=== PATIENT | male | born 1965 | race Caucasian/White ===

== ENCOUNTER 2025-01-23 07:40 | Emergency (ER) | payer OTHER, SELFPAY ==
--- OUTSIDE RECORDS SUMMARY | 2020-07-14 11:00 | XMS_ITS | Continuity of Care Document ---
Author Organization [facility] Address [address] [place] [address] Phone Care Team Providers Care Restrooms Or Lounges Maid Name Role Phone Jaya Gallo Unavailable Unavailable Procedures Procedure Date Moderna COVID-19 Vaccine Moderna COVID Vaccine Admin Dose 2 Moderna COVID-19 Vaccine Moderna COVID Vaccine Admin Dose 1 Moderna COVID-19 Vaccine Advance Directives Directive Yes / No Effective Date File Name No Information Encounters Encounter Description Practice Location Reason(s) For Visit Diagnoses Date Provider Providers Copied on Encounter [facility], [address] [place], [place], [id number], tel:[phone] COVID ECHD No Information Nancy Villatoro. [address], [place], [id number], [place]. tel:[phone] [facility], [address] [place], [place], [id number], tel:[phone] COVID ECHD No Information Nancy Villatoro. [address], [place], [id number], [place]. tel:[phone] Family History Family Member Type Diagnosis Age At Onset No Information Immunizations Vaccine Date Status Comments Moderna COVID administered Source: New Im munization Record Moderna COVID administered Source: New Im munization Record Payers Payer name Insurance type Covered green party ID Authoriza tion(s) Medicare PPS MB [id number] Medicare PPS MB [id number] Medicare PPS MB [id number] Social History Type Description Quantity Date Captured Comments Alcohol Use Details Unknown Caffeine Use Details Unknown Tobacco Use Status No Information Smoking Status No Information Sex Male Sexual Orientation Straight or heterosexual Gender Identity Male Chief Complaint And Reason For Visit No Information Reason For Referral Reason For Referral No Information History Of Present Illness Encounter Date Complaint History Of Prese nt Illness No Information Functional Status Date Functional Assessmen t No Information Instructions Date Instruction Additional Infor mation No Information Assessments Type Assessment Date No Information Patient Care Teams Name Effective Dates (start - stop) Status Members No Information
--- OUTSIDE RECORDS SUMMARY | 2025-01-20 08:39 | XMS_ITS | Encounter Summary ---
Author Organization [facility] Address [address] [place] [address] Care Team Providers Care News Broadcaster Name Role Phone Dain Marion DO Primary Care Provider [phone] Source Comments In the event this information is protected by the Federal Confidentiality of Alcohol and Drug AbusePatient Records regulations: The Federal rules restrict any use of the information to criminally investigate or prosecute any alcohol or drug abuse patient.[facility] Reason for Visit * Reason Comments Foreign Body Pt with small piece of metal in left foot x 3 weeks Encounter Details Date Type Department Care Team (Late st Contact Info) Description 01/20/2025 8:39 AM EDT - 01/20/2025 10:12 AM EDT Emergency [facility] Emergency Dept [address] [place] [address] Foreign body Discharge Disposition: AMA/Discontinuation of Care-Use additional discharge code Social History Tobacco Use Types Packs/Day Years Used Date Smoking Tobacco: Former Cigarettes 1 35 0 06/18/1977 - 06/18/2012 Smokeless Tobacco: Never Alcohol Use Standard Drinks/Week Comments Yes 0 (1 standard drink = 0.6 oz pur e alcohol) 2-3 beers daily as of 05/06/21 Social Connection and Isolat ion Panel [NHANES] Answer Date Recorded In a typical week, how many times do you talk on the phone with family, friends, or neighbors? More than three times a week 01/10/2021 How often do you get togethe r with friends or relatives? More than three times a week 01/10/2021 How often do you attend chur ch or synagogue services? More than 4 times per year 01/10/2021 Active Member of Clubs or Organizations Not on f ile 01/10/2021 How often do you attend meet ings of the clubs or organizations you belong to? More than 4 times per year 01/10/2021 Are you , , di vorced, , never , or living with a partner? 01/10/2021 AUDIT-C Answer Date Recorded Q1: How often do you have a drink containing alcohol? 4 or more times a week 01/10/2021 Q2: How many drinks containi ng alcohol do you have on a typical day when you are drinking? 7 to 9 Q3: How often do you have si x or more drinks on one occasion? Daily or almost daily 01/10/2021 Overall Financial Resource Strain (CARDIA) Answe r Date Recorded How hard is it for you to pa y for the very basics like food, housing, medical care, and heating? Not hard at all 01/10/2021 PHQ-2 Answer Date Recorded PHQ-2 score 0 01/10/2021 [facility] Answer Date Recorded Do you feel stress - tense, restless, nervous, or anxious, or unable to sleep at night because your mind is troubled all the time - these days? Only a little 01/10/2021 Exercise Vital Sign Answer Date Recorde d On average, how many days pe r week do you engage in moderate to strenuous exercise (like a brisk walk)? Patient declined On average, how many minutes do you engage in exercise at this level? Patient declined 01/10/2021 Hunger Vital Sign Answer Date Recorded Within the past 12 months, y ou worried that your food would run out before you got the money to buy more. Never true 01/11/20 21 Within the past 12 months, t he food you bought just didn't last and you didn't have money to get more. Never true 01/10/2021 PRAPARE - Transportation Answer Date Re corded In the past 12 months, has l ack of transportation kept you from medical appointments or from getting medications? No 12/17 In the past 12 months, has l ack of transportation kept you from meetings, work, or from getting things needed for daily living? No 01/10/2021 Housing Stability Vital Sign Answer Ranjan e Recorded In the last 12 months, was t here a time when you were not able to pay the mortgage or rent on time? No 01/10/2021 In the last 12 months, how many places have you lived? 1 01/10/2021 In the last 12 months, was t here a time when you did not have a steady place to sleep or slept in a custodial (including now)? No 01/10/2021 Area Deprivation Index Answer Date Ang rded National Score (1-100), lowe r number is lower risk 61 07/13/2024 State Score (1-10), lower number is lower risk 4 07/13/2024 Data from: https://www.neighborhoodatlas.medicine.[facility].edu/ . Last address used for calculation [address] 07/13/2024 Education Answer Date Recorded What is the highest level of school you have completed or the highest degree you have received? Some college, no degree 01/10/2021 Sex and Gender Information Value Date Recorded Sex Assigned at Male 10/06/2020 9:52 PM EDT Legal Sex Male 2:52 PM EDT Gender Identity Male 10/06/2020 9:52 PM EDT Sexual Orientation Straight 10/06/2020 9: 52 PM EDT Occupation Industry Job Start Date Job End Date Work at [employer] Not on file Not on file Not on starr e documented as of this encounter Last Filed Vital Signs Vital Sign Reading Time Taken Comments Blood Pressure 161/67 01/20/2025 8:27 AM EDT Pulse 71 01/20/2025 8:27 AM EDT Temperature - - Respiratory Rate 17 01/20/2025 8:27 AM EDT Oxygen Saturation 98% 01/20/2025 8:27 AM EDT Inhaled Oxygen Concentration - - Weight 78.5 kg (173 lb) 01/20/2025 8:00 AM EDT Height 165.1 cm (5' 5 ) 01/20/2025 8:00 AM EDT Body Mass Index 28.79 01/20/2025 8:00 AM EDT documented in this encounter Functional Status * Are you deaf or do you have serious difficulty hearing? Answer Date of Assessment Author No 01/08/2021 5:15 PM EDT Tiesha Whitlock RN * Are you blind or do you have serious difficulty seeing, even when wearing glasses? Answer Date of Assessment Author No 01/08/2021 5:15 PM EDT Tiesha Whitlock RN * Do you have serious difficulty walking or climbing stairs? Answer Date of Assessment Author No 01/08/2021 5:15 PM EDT Tiesha Whitlock RN * Do you have difficulty dressing or bathing? Answer Date of Assessment Author No 01/08/2021 5:15 PM EDT Tiesha Whitlock RN * Because of a physical, mental, or emotional condition, do you have difficulty doing errands alone such as visiting a doctor's office or shopping? Answer Date of Assessment Author No 01/08/2021 5:15 PM EDT Tiesha Whitlock RN documented as of this encounter Mental Status * Because of a physical, mental, or emotional condition, do you have serious difficulty concentrating, remembering, or making decisions? Answer Entry Date Author No 01/08/2021 5:15 PM EDT Tiesha Whitlock RN documented in this encounter Medications at Time of Discharge insulin lispro (HUMALOG KWIKPEN INSULIN) 100 unit/mL Inject 10 units three times daily with meals + correction scale (Max daily dose of 84 units) 5 Pen 2 insulin glargine (LANTUS SOLOSTAR, BASAGLAR KWIKPEN) 100 unit/mL (3 mL) Inject 68 Units subcutaneously daily at bedtime. 2 ascorbic acid (VITAMIN C ORAL) Take 1,000 mg by mouth as needed. mupirocin (BACTROBAN) 2 % ointmentIndications: Preop examination 1/2 inch ribbon apply to cotton swab inside each nostril twice daily 5 days prior to surgery and including day of surgery 22 g 1 fenofibrate nanocrystallized (TRICOR ORAL) Take 200 mg by mouth. tamsulosin ER (FLOMAX) 0.4 mg cp24 TAKE 1 CAPSULE DAILY 90 capsule 3 6 pravastatin (PRAVACHOL) 40 mg tablet Take 40 mg by mouth once daily. Cholecalciferol, Vitamin D3, 1,000 unit cap Take by mouth once daily. MULTI-VITAMIN ORAL Take 1 tablet by mouth once daily. citalopram hydrobromide (CELEXA) 10 mg tablet Take 20 mg by mouth once daily. blood sugar diagnostic (FREESTYLE TEST) test strip Use as instructed 150 Strip 0 4 Lancets (FREESTYLE LANCETS) lancets Use as instructed 150 Each 0 4 Insulin [place], Disposable, (ZEINAB PEN NEEDLE) 32 x 5/32 ndle As directed. 200 Each 0 4 documented as of this encounter ED Notes * Kong Napoles MD - 01/20/2025 8:26 AM EDT ED TRIAGE PROVIDER NOTE Patient Name: George Zuniga Service Date: 01/20/25 BRIEF HPI: This is a 59 year old male who presents to the ED with: possible FB in Left foot. States he steppedon a metal shaving 3 weeks ago but it has not come out. No other symptoms. BRIEF EXAM: NAD Awake and Alert Non labored breathing Left foot: no swelling and no signs of infection INITIAL WORKUP AND DECISION MAKING: Orders Placed This Encounter XR FOOT GENERAL 3V AP/LAT/OBL LEFT SIGNATURE: Kong Napoles MD documented in this encounter Miscellaneous Notes * [facility] - Kayden Valdivia RT(R) - 01/20/2025 9:00 AM EDT Radiology Service Progress Note PATIENT NAME: George Zuniga DATE OF SERVICE: January 20, 2025 TIME: 9:00 AM PATIENT IDENTITY VERIFICATION COMPLETED USING TWO (2) IDENTIFIERS: Name and Date of confirmedby patient verbally and Name and Date of confirmed by identification band. FALL SCREENING: Has the patient had 2 falls in the last year or 1 fall with injury or currently using an Ambulatory Assistive Device (Walker, Cane, Wheelchair, Crutches, etc.)? Emergency Room Patient: Screened in ED PATIENT GENDER DATA: Assigned male at PATIENT RELEVANT IMPLANT DATA REVIEWED: Not Applicable PATIENT PRESENTS WITH AN IMPLANTABLE OR ATTACHED DRAW BENCH OPERATOR HELPER: No RADIOLOGY DEPARTMENT: General X-ray: Exam(s) Completed: Lower Extremity X- Ray(s): Foot, Left PERIPHERAL IV DATA: Not applicable SIGNED BY: RT Justin(R) January 20, 2025 9:00 AM documented in this encounter Plan of Treatment Upcoming Encounters Date Type Department Care Team (Late st Contact Info) Description 07/13/2025 10:45 AM EST Office Visit Research [address] [place] [address] [address], Yr2 [id number] 07/13/2025 11:45 AM EST Office Visit [facility] [address] [place] [address] [address], Yr2 [id number] documented as of this encounter Procedures Procedure Name Priority Date/Time Associated Diagnosis Comments XR FOOT GENERAL 3V AP/LAT/OBL LEFT STAT 01/20/2025 9:01 AM EDT documented in this encounter Results * XR FOOT GENERAL 3V AP/LAT/OBL LEFT (01/20/2025 9:01 AM EDT) Anatomical Region Laterality Modality Foot Radiographic Ivette ging 01/20/2025 9:01 AM EDT Impressions 01/20/2025 9:48 AM EDT IMPRESSION: No acute osseous abnormality. No radiodense foreign body. Cocktail Lounge Manager: PSCRomain Transcribe Date/Time: Jan 20 2025 9:40A Dictated by : MARIA E GRANDE MD This examination was interpreted and the report reviewed and electronically signed by: MARIA E GRANDE MD on Jan 20 2025 9:46AM EST Narrative 01/20/2025 9:48 AM EDT * * *Final Report* * * DATE OF EXAM: Jan 20 2025 9:01AM [id number] 5336 - XR FOOT 3V AP/LAT/OBL LT / PROCEDURE REASON: Other * * * * Physician Interpretation * * * * EXAM(s): XR FOOT 3V AP/LAT/OBL LT EXAM DATE/TIME: 01/20/2025 9:01 AM Clinical information: Other pt stepped on metal with left foot TECHNIQUE: Images: XR FOOT 3V AP/LAT/OBL LT Comparison: None. RESULT: Findings: No fracture. Mild narrowing, sclerosis and osteophytes of the great toe. Chronic deformity of the proximal diaphysis of the fifth toe metatarsal. No soft tissue abnormality. No radiodense foreign body. Procedure Note Provider, [facility] [place] - 01/20/2025 * * *Final Report* * * DATE OF EXAM: Jan 20 2025 9:01AM FVX [id number] - XR FOOT 3V AP/LAT/OBL LT / PROCEDURE REASON: Other * * * * Physician Interpretation * * * * EXAM(s): XR FOOT 3V AP/LAT/OBL LT EXAM DATE/TIME: 01/20/2025 9:01 AM Clinical information: Other pt stepped on metal with left foot TECHNIQUE: Images: XR FOOT 3V AP/LAT/OBL LT Comparison: None. RESULT: Findings: No fracture. Mild narrowing, sclerosis and osteophytes of the great toe. Chronic deformity of the proximal diaphysis of the fifth toe metatarsal. No soft tissue abnormality. No radiodense foreign body. IMPRESSION IMPRESSION: No acute osseous abnormality. No radiodense foreign body. Cocktail Lounge Manager: PSCB Transcribe Date/Time: Jan 20 2025 9:40A Dictated by : MARIA E GRANDE MD This examination was interpreted and the report reviewed and electronically signed by: MARIA E GRANDE MD on Jan 20 2025 9:46AM EST Kong Napoles MD RAD-PAMA Final Result documented in this encounter Visit Diagnoses Not on filedocumented in this encounter Care Teams News Broadcaster Relationship Specialty Start Date End Date Dain Marion DO [address] [place] [address] PCP - General 02/07/13 documented as of this encounter
[2025-01-23 07:45] VITALS: BP 154/82; PULSE 68; TEMP 36.4; O2SAT 98; BMI 28.3
--- OUTSIDE RECORDS SUMMARY | 2025-01-23 07:47 | XMS_ITS | Encounter Summary ---
Author Organization [facility] Address [address] [place] [address] Care Team Providers Care Road Grader Operator Name Role Phone Dain Marion DO Primary Care Provider [phone] Source Comments In the event this information is protected by the Federal Confidentiality of Alcohol and Drug AbusePatient Records regulations: The Federal rules restrict any use of the information to criminally investigate or prosecute any alcohol or drug abuse patient.[facility] Encounter Details Date Type Department Care Team (Latest Contact Info) Description 01/20/2025 Travel Social History Tobacco Use Types Packs/Day Years [...] often do you attend chur ch or pentecostalism services? More than 4 times per year [...] Answer Date Recorded PHQ-2 score 0 01/10/2021 [facility] - Occupational Stress Questionnaire Answer Date Recorded [...] place to sleep or slept in a fci (including now)? No 01/10/2021 Area Deprivation Index Answer Date Ang rded National Score (1-100), lowe r number is lower risk 61 07/13/2024 State Score (1-10), lower number is lower risk 4 07/13/2024 Data from: https://www.neighborhoodatlas.medicine.[facility].edu/ . Last address used for calculation [address] [...] starr e documented as of this encounter Functional Status * Are you [...] Tiesha Whitlock RN documented in this encounter Plan of Treatment Upcoming Encounters Date Type Department Care Team (Late st Contact Info) Description 07/13/2025 10:45 AM EST Office Visit [facility] [address] [place] [address] [address], Yr2 -[id number] 07/13/2025 11:45 AM EST Office Visit [facility] [address] [place] [address] [address], 45 documented as of this encounter Visit Diagnoses Not on filedocumented in this encounter Care Teams Road Grader Operator Relationship Specialty Start Date End Date Dain Marion DO [address] [place] [address] PCP - General 02/07/13 documented as of this encounter
--- OUTSIDE RECORDS SUMMARY | 2025-01-23 07:47 | XMS_ITS | Encounter Summary ---
Author Organization [facility] Address [address] [place] [address] Care Team Providers Care Machine Fur Cleaner Name Role Phone Dain Marion DO Primary Care Provider +1- [phone] Source Comments In the event this information is protected by the Federal Confidentiality of Alcohol and Drug AbusePatient Records regulations: The Federal rules restrict any use of the information to criminally investigate or prosecute any alcohol or drug abuse patient.[facility] Encounter Details Date Type Department Care Team (Late st Contact Info) Description 03/05/2015 Patient Msg Medical Records [address] [place] [address] Provider, [facility] PREOP APPOINTMENTS AND INSTRUCTIONS Social History Tobacco Use Types Packs/Day Years Used Date Smoking Tobacco: Former Alcohol Use Standard Drinks/Week Comments No 70 (1 standard drink = 0.6 oz pure alcohol) Last drink 12/27/12. Used to drink 8-10 Beers / day Sex and Gender Information Value Date Recorded [...] hearing? Answer Date of Assessment Author No 02/24/2014 4:32 PM EDT Eugenie Sorto RN * Are you blind or do you have serious difficulty seeing, even when wearing glasses? Answer Date of Assessment Author No 02/24/2014 4:32 PM EDT Eugenie Sorto RN * Do you have serious difficulty walking or climbing stairs? Answer Date of Assessment Author No 02/24/2014 4:32 PM EDT Eugenie Sorto RN * Do you have difficulty dressing or bathing? Answer Date of Assessment Author No 02/24/2014 4:32 PM EDT Eugenie Sorto RN * Because of a physical, mental, or emotional condition, do you have difficulty doing errands alone such as visiting a doctor's office or shopping? Answer Date of Assessment Author No 02/24/2014 4:32 PM EDT Eugenie Sorto RN documented as of this encounter Mental Status * Because of a physical, mental, or emotional condition, do you have serious difficulty concentrating, remembering, or making decisions? Answer Entry Date Author No 02/24/2014 4:32 PM EDT Eugenie Sorto RN documented in this encounter Plan of Treatment Upcoming Encounters Date Type Department Care Team (Late st Contact Info) Description 07/13/2025 10:45 AM EST Office Visit [facility] [address] [place] [address] [address], Yr2 -[id number] 07/13/2025 11:45 AM EST Office Visit [facility] [address] [place] [address] [address], [phone] documented as of this encounter Visit Diagnoses Not on filedocumented in this encounter Additional Health Concerns Infection Onset Date Last Indicated Resolved Time COVID-19 Rule-Out 01/07/2021 01/07/2021 01/07/2021 6:51 PM EDT documented as of this encounter Care Teams Machine Fur Cleaner Relationship Specialty Start Date End Date Dain Marion DO [address] [place] [address] PCP - General 02/07/13 documented as of this encounter
--- OUTSIDE RECORDS SUMMARY | 2025-01-23 07:47 | XMS_ITS | Encounter Summary ---
Author Organization [facility] Address [facility] [place] [address] Care Team Providers Care Aviation Consultant Name Role Phone Dain Marion DO Primary Care Provider +1- [phone] Source Comments In the event this information is protected by the Federal Confidentiality of Alcohol and Drug AbusePatient Records regulations: The Federal rules restrict any use of the information to criminally investigate or prosecute any alcohol or drug abuse patient.[facility] Encounter Details Date Type Department Care Team (Late st Contact Info) Description 02/04/2015 Abstract Urology [address] [place] [address] Giuliana Sosa, PELLET PREPARATION OPERATOR.MAINTENANCE WORKER HOUSE TRAILER [address] [place] [id number] Social History Tobacco Use Types Packs/Day Years [...] Start Date Job End Date Work at [employer] Not on file Not on file Not [...] 10:45 AM EST Office Visit Research [address] [place] [address] [address], Yr2 -[id number] 07/13/2025 11:45 AM EST Office Visit [facility] [address] [place] [address] [address], [phone] documented as of this encounter Visit Diagnoses Not on filedocumented in this encounter Additional Health Concerns Infection Onset Date Last Indicated Resolved Time COVID-19 Rule-Out 01/07/2021 01/07/2021 01/07/2021 6:51 PM EDT documented as of this encounter Care Teams Aviation Consultant Relationship Specialty Start Date End Date Dain Marion DO [address] [place] [address] PCP - General 02/07/13 documented as of this encounter
--- OUTSIDE RECORDS SUMMARY | 2025-01-23 07:48 | XMS_ITS | Encounter Summary ---
Author Organization [facility] Address [facility] [place] [address] Care Team Providers Care Corncob Pipes Assembler Name Role Phone Dain Marion DO Primary Care Provider +1- [phone] Source Comments In the event this information is protected by the Federal Confidentiality of Alcohol and Drug AbusePatient Records regulations: The Federal rules restrict any use of the information to criminally investigate or prosecute any alcohol or drug abuse patient.[facility] Encounter Details Date Type Department Care Team (Latest Contact Info) Description 04/21/2021 Patient [facility] [address] [place] [phone] Provider, [facility] Surgery Information Social History Tobacco Use Types Packs/Day Years Used Date Smoking Tobacco: Former Cigarettes 1 35 0 06/18/1977 - 06/18/2012 Smokeless Tobacco: Never Alcohol Use Standard Drinks/Week Comments Yes 16 (1 standard drink = 0.6 oz pu re alcohol) 8-15 beers a day Social Connection and Isolat ion Panel [NHANES] Answer Date Recorded In a typical week, how many times do you talk on the phone with family, friends, or neighbors? More than three times a week 01/10/2021 How often do you get togethe r with friends or relatives? More than three times a week 01/10/2021 How often do you attend chur ch or congregation services? More than 4 times per year [...] Answer Date Recorded PHQ-2 score 0 01/10/2021 [facility] Occupat ional Health - Occupational Stress [...] place to sleep or slept in a long-term (including now)? No 01/10/2021 Area Deprivation Index Answer Date Ang rded National Score (1-100), lower number is lower ri sk Not on file 05/25/2020 State Score (1-10), lower number is lower risk N ot on file 05/25/2020 Data from: https://www.neighborhoodatlas.medicine.[facility].edu/. Last address used for calculation Not on file 05/25/2020 Education Answer Date Recorded What is the [...] 10:45 AM EST Office Visit Research [address] [place] [address] [address], Yr2 -[phone] 07/13/2025 11:45 AM EST Office Visit Research [address] [place] [address] [address], Yr2 -[phone] documented as of this encounter Visit Diagnoses Not on filedocumented in this encounter Care Teams Corncob Pipes Assembler Relationship Specialty Start Date End Date Dain Marion DO [address] [place] [address] PCP - General 02/07/13 documented as of this encounter
--- OUTSIDE RECORDS SUMMARY | 2025-01-23 07:48 | XMS_ITS | Encounter Summary ---
Author Organization [facility] Address [address] [place] [address] Care Team Providers Care Asphalt Coater Name Role Phone Dain Marion DO Primary Care Provider +1- [phone] Source Comments In the event this information is protected by the Federal Confidentiality of Alcohol and Drug AbusePatient Records regulations: The Federal rules restrict any use of the information to criminally investigate or prosecute any alcohol or drug abuse patient.[facility] Encounter Details Date Type Department Care Team (Late st Contact Info) Description 01/17/2021 Get Medical Advice Internal Medicine [address] [place], [place] [id number] Greta Garcia APRN.PERINATAL SPECIALIST [address] [place], [place] [id number] RE: Visit Follow Up Question Social History Tobacco Use Types Packs/Day Years [...] often do you attend chur ch or nondenominational services? More than 4 times per year [...] Answer Date Recorded PHQ-2 score 0 [facility] Answer Date [...] place to sleep or slept in a group home (including now)? No 01/10/2021 Area Deprivation Index Answer Date Ang rded National Score (1-100), lower number is lower ri sk Not on file 05/25/2020 State Score (1-10), lower number is lower risk N ot on file 05/25/2020 Data from: https://www.neighborhoodatlas.medicine.[facility].edu/. Last address used for calculation Not [...] Not on file Not on starr e COVID-19 Exposure Response Date Recorded In the last month, have you been in contact with someone who was confirmed or suspected to have Coronavirus / COVID-19? No / Unsure 01/17/2021 11:41 AM EDT documented as of this encounter Functional Status [...] 10:45 AM EST Office Visit Research [address] [place] [address] #10, [id number] 07/13/2025 11:45 AM EST Office Visit Research [address] [place] [address] #10, [id number] -[id number] documented as of this encounter Visit Diagnoses Not on filedocumented in this encounter Care Teams Asphalt Coater Relationship Specialty Start Date End Date Dain Marion DO [address] [place] [address] PCP - General 02/07/13 documented as of this encounter
--- OUTSIDE RECORDS SUMMARY | 2025-01-23 07:48 | XMS_ITS | Encounter Summary ---
Author Organization [facility] Address [address] [place] [address] Care Team Providers Care Data Manager Name Role Phone Dain Marion DO Primary Care Provider +1- [phone] Source Comments In the event this information is protected by the Federal Confidentiality of Alcohol and Drug AbusePatient Records regulations: The Federal rules restrict any use of the information to criminally investigate or prosecute any alcohol or drug abuse patient.[facility] Encounter Details Date Type Department Care Team (Latest Contact Info) Description 07/19/2020 Patient [facility] [address] [place] [address] Provider, [facility]cf [facility] Orthopaedic Surgery - Dr. Young Little Social History Tobacco Use Types Packs/Day Years Used Date Smoking Tobacco: Former Cigarettes Q uit: 06/18/2012 Smokeless Tobacco: Never Alcohol Use Standard Drinks/Week Comments No 70 (1 standard drink = 0.6 oz pure alcohol) Last drink 12/27/12. Used to drink 8-10 Beers / day Overall Financial Resource Strain (CARDIA) Answe r Date Recorded How hard is it for you to pa y for the very basics like food, housing, medical care, and heating? Not hard at all 08/11/2019 Hunger Vital Sign Answer Date Recorded Within the past 12 months, y ou worried that your food would run out before you got the money to buy more. Never true 08/11/19 20 Within the past 12 months, t he food you bought just didn't last and you didn't have money to get more. Never true 08/11/2019 PRAPARE - Transportation Answer Date Re corded In the past 12 months, has l ack of transportation kept you from medical appointments or from getting medications? No 07/20 In the past 12 months, has l ack of transportation kept you from meetings, work, or from getting things needed for daily living? No 08/11/2019 Area Deprivation Index Answer Date Ang rded National Score (1-100), lower number is lower ri sk Not on file 05/25/2020 State Score (1-10), lower number is lower risk N ot on file 05/25/2020 Data from: https://www.neighborhoodatlas.medicine.[facility].edu/. Last address used for calculation Not on file 05/25/2020 Sex and Gender Information Value Date Recorded [...] hearing? Answer Date of Assessment Author No 08/11/2019 2:12 PM Cristina Phillips, ABDI * Are you blind or do you have serious difficulty seeing, even when wearing glasses? Answer Date of Assessment Author No 08/11/2019 2:12 PM Cristina Phillips, ABDI * Do you have serious difficulty walking or climbing stairs? Answer Date of Assessment Author No 08/11/2019 2:12 PM Cristina Phillips, RN * Do you have difficulty dressing or bathing? Answer Date of Assessment Author No 08/11/2019 2:12 PM Cristina Phillips, ABDI * Because of a physical, mental, or emotional condition, do you have difficulty doing errands alone such as visiting a doctor's office or shopping? Answer Date of Assessment Author No 08/11/2019 2:12 PM Cristina Phillips, RN documented as of this encounter Mental Status * Because of a physical, mental, or emotional condition, do you have serious difficulty concentrating, remembering, or making decisions? Answer Entry Date Author No 08/11/2019 2:12 PM Cristina Phillips, RN documented in this encounter Plan of Treatment Upcoming Encounters Date Type Department Care Team (Late st Contact Info) Description 07/13/2025 10:45 AM EST Office Visit Research [address] [place] [address] #10, [id number] 07/13/2025 11:45 AM EST Office Visit Research [address] [place] [address] #10, [id number] -[id number] documented as of this encounter Visit Diagnoses Not on filedocumented in this encounter Additional Health Concerns Infection Onset Date Last Indicated Resolved Time COVID-19 Rule-Out 01/07/2021 01/07/2021 01/07/2021 6:51 PM EDT documented as of this encounter Care Teams Data Manager Relationship Specialty Start Date End Date Dain Marion DO [address] [place] [address] PCP - General 02/07/13 documented as of this encounter
--- OUTSIDE RECORDS SUMMARY | 2025-01-23 07:48 | XMS_ITS | Encounter Summary ---
Author Organization [facility] Address [address] [place] [address] Care Team Providers Care Motor Tester Name Role Phone Dian Marion DO Primary Care Provider +1- [phone] Source Comments In the event this information is protected by the Federal Confidentiality of Alcohol and Drug AbusePatient Records regulations: The Federal rules restrict any use of the information to criminally investigate or prosecute any alcohol or drug abuse patient.[facility] Encounter Details Date Type Department Care Team (Late st Contact Info) Description 08/03/2015 Get Medical Advice Urology [address] [phone] Wily Morales PA-C [address] [place], [place] [phone] RE: Visit Follow Up Question Social History [...] Start Date Job End Date Work at [employer] Not on file Not on file Not [...] of Assessment Author No 02/24/2014 4:32 PM Eugenie Espinoza RN documented as of this encounter Mental Status * Because of a physical, mental, or emotional condition, do you have serious difficulty concentrating, remembering, or making decisions? Answer Entry Date Author No 02/24/2014 4:32 PM Eugenie Espinoza RN documented in this encounter Plan of Treatment Upcoming Encounters Date Type Department Care Team (Late st Contact Info) Description 07/13/2025 10:45 AM EST Office Visit Research [address] [place] [address] #10, [id number] 07/13/2025 11:45 AM EST Office Visit Research [address] [place] [address] #10, [phone] documented as of this encounter Visit Diagnoses Not on filedocumented in this encounter Additional Health Concerns Infection Onset Date Last Indicated Resolved Time COVID-19 Rule-Out 01/07/2021 01/07/2021 01/07/2021 6:51 PM EDT documented as of this encounter Care Teams Motor Tester Relationship Specialty Start Date End Date Dain Marion DO [address] [place] [address] PCP - General 02/07/13 documented as of this encounter
--- OUTSIDE RECORDS SUMMARY | 2025-01-23 07:48 | XMS_ITS | Encounter Summary ---
Author Organization [facility] Address [facility] [place] [address] Care Team Providers Care Director Personal Name Role Phone Dain Marion Primary Care Provider +1- [phone] Source Comments In the event this information is protected by the Federal Confidentiality of Alcohol and Drug AbusePatient Records regulations: The Federal rules restrict any use of the information to criminally investigate or prosecute any alcohol or drug abuse patient.[facility] Encounter Details Date Type Department Care Team (Late st Contact Info) Description 02/08/[address] [facility] Gastroenterology [address] [place] [phone] Provider, Ccf Colonoscopy Prep Instructions Social History Tobacco Use Types Packs/Day Years [...] often do you attend chur ch or caodaism services? More than 4 times per year [...] Answer Date Recorded PHQ-2 score 0 01/10/2021 [facility] - Occupational [...] place to sleep or slept in a retirement (including now)? No 01/10/2021 Area Deprivation Index Answer Date Ang rded National Score (1-100), lower number is lower ri sk Not on file 05/25/2020 State Score (1-10), lower number is lower risk N ot on file 05/25/2020 Data from: https://www.neighborhoodatlas.medicine.[facility].edu/. Last address used for calculation Not on [...] 10:45 AM EST Office Visit Research [address] [place] [address] #10, [id number] -[id number] 07/13/2025 11:45 AM EST Office Visit Research [address] [place] [address] #10, [id number] -[id number] documented as of this encounter Visit Diagnoses Not on filedocumented in this encounter Care Teams Director Personal Relationship Specialty Start Date End Date Dain Marion DO [address] [place] [address] PCP - General 02/07/13 documented as of this encounter
--- OUTSIDE RECORDS SUMMARY | 2025-01-23 07:48 | XMS_ITS | Encounter Summary ---
Author Organization [facility] Address [facility] [place] [address] Care Team Providers Care Bung Dropper Name Role Phone Dain Marion DO Primary Care Provider +1- [phone] Source Comments In the event this information is protected by the Federal Confidentiality of Alcohol and Drug AbusePatient Records regulations: The Federal rules restrict any use of the information to criminally investigate or prosecute any alcohol or drug abuse patient.[facility] Encounter Details Date Type Department Care Team (Late st Contact Info) Description 09/08/2019 Patient Msg Gastroenterology [address] [place] [phone] Provider, Ccf MRI results Social History Tobacco Use Types Packs/Day Years [...] things needed for daily living? No 08/11/2019 Sex and Gender Information Value Date Recorded Sex Assigned at Male 10/06/2020 9:52 PM EDT Legal Sex Male 2:52 PM EDT Gender Identity Male 10/06/2020 9:52 PM EDT Sexual Orientation Straight 10/06/2020 9: 52 PM EDT Occupation Industry Job Start Date Job End Date Work at [employer] Not on file Not on file Not on starr e COVID-19 Exposure Response Date Recorded In the last month, have you been in contact with someone who was confirmed or suspected to have Coronavirus / COVID-19? No / Unsure 09/02/2019 12:50 PM EDT documented as of this encounter Functional Status * Are you deaf or do you have serious difficulty hearing? Answer Date of Assessment Author No 08/11/2019 2:12 PM Cristina Phillips RN * Are you blind or do you have serious difficulty seeing, even when wearing glasses? Answer Date of Assessment Author No 08/11/2019 2:12 PM Cristina Phillips RN * Do you have serious difficulty walking or climbing stairs? Answer Date of Assessment Author No 08/11/2019 2:12 PM Cristina Phillips RN * Do you have difficulty dressing or bathing? Answer Date of Assessment Author No 08/11/2019 2:12 PM Cristina Phillips, ABDI * Because of a physical, mental, or emotional condition, do you have difficulty doing errands alone such as visiting a doctor's office or shopping? Answer Date of Assessment Author No 08/11/2019 2:12 PM EST Loeber, A mber, RN documented as of this encounter Mental Status * Because of a physical, mental, or emotional condition, do you have serious difficulty concentrating, remembering, or making decisions? Answer Entry Date Author No 08/11/2019 2:12 PM EST Cristina Garcia, RN documented in this encounter Plan of Treatment Upcoming Encounters Date Type Department Care Team (Late st Contact Info) Description 07/13/2025 10:45 AM EST Office Visit Research [address] [place] [address] #10, Yr2 -[id number] 07/13/2025 11:45 AM EST Office Visit Research [address] [place] [address] #10, [phone] documented as of this encounter Visit Diagnoses Not on filedocumented in this encounter Additional Health Concerns Infection Onset Date Last Indicated Resolved Time COVID-19 Rule-Out 01/07/2021 01/07/2021 01/07/2021 6:51 PM EDT documented as of this encounter Care Teams Bung Dropper Relationship Specialty Start Date End Date Dain Marion DO [address] [place] [address] PCP - General 02/07/13 documented as of this encounter
--- OUTSIDE RECORDS SUMMARY | 2025-01-23 07:48 | XMS_ITS | Encounter Summary ---
Author Organization [facility] Address [address] [place] [address] Care Team Providers Care Body Man Name Role Phone Dain Marion DO Primary Care Provider +1- [phone] Source Comments In the event this information is protected by the Federal Confidentiality of Alcohol and Drug AbusePatient Records regulations: The Federal rules restrict any use of the information to criminally investigate or prosecute any alcohol or drug abuse patient.[facility] Encounter Details Date Type Department Care Team (Late st Contact Info) Description 06/10/2015 Patient Msg Medical Records [address] [place] [address] Provider, Ccf UROLOGY PRE OP SURGERY INSTRUCTIONS Social History Tobacco Use Types Packs/Day [...] Start Date Job End Date Work at [employer] Not on file Not on file [...] AM EST Office Visit Research [address] [place] [address] #10, [id number] -[id number] 07/13/2025 11:45 AM EST Office Visit Research [address] [place] [address] #10, [id number] -[id number] documented as of this encounter Visit Diagnoses Not on filedocumented in this encounter Additional Health Concerns Infection Onset Date Last Indicated Resolved Time COVID-19 Rule-Out 01/07/2021 01/07/2021 01/07/2021 6:51 PM EDT documented as of this encounter Care Teams Body Man Relationship Specialty Start Date End Date Dain Marion DO [address] [place] [address] PCP - General 02/07/13 documented as of this encounter
--- OUTSIDE RECORDS SUMMARY | 2025-01-23 07:48 | XMS_ITS | Encounter Summary ---
Author Organization [facility] Address [address] [place] [address] Care Team Providers Care Java Programmer Name Role Phone Dain Marion DO Primary Care Provider +1- [phone] Source Comments In the event this information is protected by the Federal Confidentiality of Alcohol and Drug AbusePatient Records regulations: The Federal rules restrict any use of the information to criminally investigate or prosecute any alcohol or drug abuse patient.[facility] Encounter Details Date Type Department Care Team (Late st Contact Info) Description 05/19/2015 Get Medical Advice Urology [address] [phone] Wily Morales PA-C [address] [place], [place] [phone] RE: Test Result Question Social History Tobacco Use Types Packs/Day Years Used Date Smoking Tobacco: Former Smokeless Tobacco: Never Alcohol Use Standard Drinks/Week [...] Start Date Job End Date Work at [employer] Not on file Not on file Not [...] AM EST Office Visit Research [address] [place] [address] #10, [id number] -[id number] 07/13/2025 11:45 AM EST Office Visit Research [address] [place] [address] #10, [id number] -[id number] documented as of this encounter Visit Diagnoses Not on filedocumented in this encounter Additional Health Concerns Infection Onset Date Last Indicated Resolved Time COVID-19 Rule-Out 01/07/2021 01/07/2021 01/07/2021 6:51 PM EDT documented as of this encounter Care Teams Java Programmer Relationship Specialty Start Date End Date Dain Marion DO [address] [place] [address] PCP - General 02/07/13 documented as of this encounter
--- OUTSIDE RECORDS SUMMARY | 2025-01-23 07:48 | XMS_ITS | Encounter Summary ---
Author Organization [facility] Address [address] [place] [address] Care Team Providers Care Certified Nursing Assistant Name Role Phone Dain Marion DO Primary Care Provider +1- [phone] Source Comments In the event this information is protected by the Federal Confidentiality of Alcohol and Drug AbusePatient Records regulations: The Federal rules restrict any use of the information to criminally investigate or prosecute any alcohol or drug abuse patient.[facility] Encounter Details Date Type Department Care Team (Late st Contact Info) Description 05/05/2013 Radiology Radiology [address] [place] [address] [place] [address] [place], [place] [phone] Social History Tobacco Use Types Packs/Day Years Used Date Smoking Tobacco: Former Cigarettes 1.5 30 0 12/27/1982 - 12/27/2012 Smokeless Tobacco: Never Alcohol Use Standard Drinks/Week [...] Start Date Job End Date Work at [employer] Not on file Not on file Not on starr e documented as of this encounter Plan of Treatment Upcoming Encounters Date Type Department Care Team (Late st Contact Info) Description 07/13/2025 10:45 AM EST Office Visit Research [address] [place] [address] #10, Yr2 -[id number] 07/13/2025 11:45 AM EST Office Visit Research [address] [place] [address] #10, [id number] -[id number] documented as of this encounter Visit Diagnoses Not on filedocumented in this encounter Additional Health Concerns Infection Onset Date Last Indicated Resolved Time COVID-19 Rule-Out 01/07/2021 01/07/2021 01/07/2021 6:51 PM EDT documented as of this encounter Care Teams Certified Nursing Assistant Relationship Specialty Start Date End Date Dain Marion DO [address] [place] [address] PCP - General 02/07/13 documented as of this encounter
--- OUTSIDE RECORDS SUMMARY | 2025-01-23 07:48 | XMS_ITS | Clinical Summary ---
Author Organization [facility] Address [address] [place] [address] Care Team Providers Care Gas Line Installer Name Role Phone Dain Marion Primary Care Provider Arvin Gamez PA Unavailable Allergies No known active allergies Medications citalopram (CeleXA) 20 MG tablet Take 20 mg by mouth in the morning. 4 Active fenofibrate micronized (Lofibra) 200 MG capsule TAKE 1 CAPSULE ONCE DAILY FOR TRIGLYCERIDES 4 Active NovoLOG FLEXPEN 100 UNIT/ML pen Active Lantus SoloStar 100 UNIT/ML pen Active tamsulosin (Flomax) 0.4 MG 24 hr capsule 4 Active losartan (Cozaar) 50 MG tablet 4 Active rosuvastatin (Crestor) 20 MG tablet 4 Active Active Problems No known active problems Family History Medical History Relation Name Comments Heart disease Father Heart disease Maternal Grandfather Diabetes Maternal Grandmother Diabetes Mother Connie Zuniga Diabetes Mother's Brother Heart disease Mother's Brother Diabetes Mother's Sister Heart disease Mother's Sister Heart disease Paternal Grandfather Diabetes Paternal Grandmother Relation Name Status Comments Father Maternal Grandfather Maternal Grandmother Mother Connie Zuniga Mother's Brother Mother's Sister Paternal Grandfather Paternal Grandmother Social History Tobacco Use Types Packs/Day Years Used Date Smoking Tobacco: Former Cigarettes 1 10 Q uit: 12/28/2011 Smokeless Tobacco: Never Tobacco Cessation:Counseling Given: Not Answered Alcohol Use Standard Drinks/Week Comments Yes 24 (1 standard drink = 0.6 oz pu re alcohol) Sex and Gender Information Value Date Recorded Sex Assigned at Male 04/08/2024 6:29 AM EDT Legal Sex Male 6:52 PM EDT Gender Identity Male 04/08/2024 6:29 AM EDT Sexual Orientation Straight 04/08/2024 6: 29 AM EDT Last Filed Vital Signs Vital Sign Reading Time Taken Comments Blood Pressure 128/78 11/07/2018 12:00 PM EDT Pulse - - Temperature - - Respiratory Rate - - Oxygen Saturation - - Inhaled Oxygen Concentration - - Weight 83.5 kg (184 lb) 07/29/2024 8:13 AM EST Height 165.1 cm (5' 5 ) 07/29/2024 8:13 AM EST Body Mass Index 30.62 07/29/2024 8:13 AM EST Plan of Treatment Health Maintenance Due Date Last Done Comments CT Colonography 1963 FIT-DNA 1963 FIT 1963 FOBT 1963 Sigmoidoscopy 1963 Influenza Vaccine (#1) 2025 05/24/2022, 2019 Colonoscopy 03/17/2031 03/17/2021, 03/17/2021, 08/16 Colorectal Cancer Screening 03/17/2031 Insurance [employer] Care Teams Gas Line Installer Relationship Specialty Start Date End Date Dain Marion [address] [place] [address] [place] [address] PCP - General Family Medicine 04/08/24 Arvin Gamez PA [address] [place] [address] PCP - [facility] 09/16/24
--- OUTSIDE RECORDS SUMMARY | 2025-01-23 07:48 | XMS_ITS | Encounter Summary ---
Author Organization [facility] Address [address] [place] [address] Care Team Providers Care Dirt Bike Racer Name Role Phone Dain Marion DO Primary Care Provider +1- [phone] Source Comments In the event this information is protected by the Federal Confidentiality of Alcohol and Drug AbusePatient Records regulations: The Federal rules restrict any use of the information to criminally investigate or prosecute any alcohol or drug abuse patient.[facility] Encounter Details Date Type Department Care Team (Late st Contact Info) Description 04/14/2013 Patient Msg Medical Records [address] [place] [address] Provider, Ccf RE: Patient Registration Completed Social History Tobacco Use Types Packs/Day Years [...] 10:45 AM EST Office Visit Research [address] [place] [address] #10, [id number] -[id number] 07/13/2025 11:45 AM EST Office Visit Research [address] [place] [address] #10, [id number] -[id number] documented as of this encounter Visit Diagnoses Not on filedocumented in this encounter Additional Health Concerns Infection Onset Date Last Indicated Resolved Time COVID-19 Rule-Out 01/07/2021 01/07/2021 01/07/2021 6:51 PM EDT documented as of this encounter Care Teams Dirt Bike Racer Relationship Specialty Start Date End Date Dain Marion DO [address] [place] [address] PCP - General 02/07/13 documented as of this encounter
--- OUTSIDE RECORDS SUMMARY | 2025-01-23 07:48 | XMS_ITS | Encounter Summary ---
Author Organization [facility] Address [address] [place] [id number] Care Team Providers Care Glass Pulverizer Equipment Operator Name Role Phone Dain Marion DO Primary Care Provider [phone] Source Comments In the event this information is protected by the Federal Confidentiality of Alcohol and Drug AbusePatient Records regulations: The Federal rules restrict any use of the information to criminally investigate or prosecute any alcohol or drug abuse patient.[facility] Encounter Details Date Type Department Care Team (Late st Contact Info) Description 02/23/2021 Get Medical Advice Internal Medicine [id number] [place], [place] [phone] Greta Garcia APRN.OPERATOR RECEPTIONIST [address] [place], [place] [phone] Visit Follow Up Question Social History Tobacco [...] often do you attend chur ch or alevism services? More than 4 times per year [...] Answer Date Recorded PHQ-2 score 0 01/10/2021 [facility] - Occupational Stress [...] N ot on file 05/25/2020 Data from: https://www.neighborhoodatlas.medicine.[facility].edu/. Last address used for calculation Not [...] Tiesha Whitlock RN documented in this encounter Miscellaneous Notes * Telephone Encounter - Cee Lindsey Lpn, LPN - 02/28/2021 10:15 AM EDT Spoke to patients and advise was seen by PCP and is feeling better. Pt is now taking iron tablets. CHRISTOPHERI to Greta documented in this encounter Plan of Treatment Upcoming Encounters Date Type Department Care Team (Late st Contact Info) Description 07/13/2025 10:45 AM EST Office Visit Research [address] [place] [address] [address], [id number] 07/13/2025 11:45 AM EST Office Visit [facility] [address] [place] [address] [address], [id number] documented as of this encounter Visit Diagnoses Not on filedocumented in this encounter Care Teams Glass Pulverizer Equipment Operator Relationship Specialty Start Date End Date Dain Marion DO [address] [facility] [place] [address] PCP - General 02/07/13 documented as of this encounter
--- OUTSIDE RECORDS SUMMARY | 2025-01-23 07:48 | XMS_ITS | Clinical Summary ---
Author Organization [facility] Address [address] [place] [id number] Care Team Providers Care Paper Carrier Name Role Phone Dain Marion DO Primary Care Provider [phone] Allergies No known active allergies Medications blood sugar diagnostic (FREESTYLE TEST) test strip Use as instructed 150 Strip 0 07/09/19 14 Active Lancets (FREESTYLE LANCETS) lancets Use as instructed 150 Each 0 07/09/19 14 Active Insulin [place], Disposable, (ZEINAB PEN NEEDLE) 32 x 5/32 ndle As directed. 200 Each 0 07/09/19 14 Active citalopram hydrobromide (CELEXA) 10 mg tablet Take 20 mg by mouth once daily. Active pravastatin (PRAVACHOL) 40 mg tablet Take 40 mg by mouth once daily. Active Cholecalciferol, Vitamin D3, 1,000 unit cap Take by mouth once daily. Active MULTI-VITAMIN ORAL Take 1 tablet by mouth once daily. Active tamsulosin ER (FLOMAX) 0.4 mg cp24 TAKE 1 CAPSULE DAILY 90 capsule 3 03/26/20 16 Active Additional Information Patient taking differently: 0.4 mg ORAL DAILY, Takes 2 capsules, Reason: Other, Reported on 02/02/2022 fenofibrate nanocrystallized (TRICOR ORAL) Take 200 mg by mouth. Active ascorbic acid (VITAMIN C ORAL) Take 1,000 mg by mouth as needed. Active mupirocin (BACTROBAN) 2 % ointmentIndications :Preop examination 1/2 inch ribbon apply to cotton swab inside each nostril twice daily 5 days prior to surgery and including day of surgery 22 g 05/06/20 21 Active insulin lispro (HUMALOG KWIKPEN INSULIN) 100 unit/mL Inject 10 units three times daily with meals + correction scale (Max daily dose of 84 units) 5 Pen 02/03/20 22 Active insulin glargine (LANTUS SOLOSTAR, BASAGLAR KWIKPEN) 100 unit/mL (3 mL) Inject 68 Units subcutaneously daily at bedtime. 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 Assessment & Plan (08/09/2019 10:13 AM EST): Assessment: He drinks 30 beers per week States he has never been admitted for alcohol withdrawal symptoms Last time he drank was on Sunday PLAN: Will monitor for any alcohol withdrawal symptoms. Assessment & Plan (08/09/2019 7:34 AM EST): He drinks 30 beers per week States he has never been admitted for alcohol withdrawal symptoms Last time he drank was on Sunday Will monitor for any alcohol withdrawal symptoms. OTIS (acute kidney injury) 08/08/2019 Assessment & Plan (08/11/2019 9:15 AM EST): Assessment: Creatinine upon admission: 1.23 (baseline ~0.9) Likely due to dehydration RESOLVED PLAN: Monitor creatinine Avoid nephrotoxic agents Renally dose meds as indicated Assessment & Plan (08/10/2019 10:11 AM EST): Assessment: Creatinine upon admission: 1.23 (baseline ~0.9) Likely due to dehydration RESOLVED PLAN: Monitor creatinine Avoid nephrotoxic agents Renally dose meds as indicated Continue IVF for now, monitor for signs of fluid overload Assessment & Plan (08/09/2019 10:11 AM EST): Assessment: Creatinine upon admission: 1.23 (baseline ~0.9) Likely due to dehydration RESOLVED PLAN: Monitor creatinine Avoid nephrotoxic agents Renally dose meds as indicated Continue IVF for now, monitor for signs of fluid overload Assessment & Plan (08/09/2019 7:28 AM EST): OTIS on CKD Stage Creatinine is is more than 1.5 times baseline Creatinine (mg/dL) Date Value 08/09/2019 0.71 08/08/2019 1.23 10/02/2017 0.97 04/30/2017 0.90 10/02/2016 0.84 07/06/2015 0.95 07/05/2015 0.93 07/04/2015 0.91 07/03/2015 0.85 07/02/2015 0.85 start IVF 100 cc/hr Urine output monitoring Monitor BMP Consider Renal U/S Avoid nephrotoxic Agents/Medication Hyponatremia 08/08/2019 Assessment & Plan (08/11/2019 9:15 AM EST): Assessment: Sodium upon admission: 125 Likely due to alcohol abuse and decreased oral intake RESOLVED PLAN: Continue IV fluid hydration, monitor for signs of fluid overload Monitor BMP Assessment & Plan (08/10/2019 10:11 AM EST): Assessment: Sodium upon admission: 125 Likely due to alcohol abuse and decreased oral intake RESOLVED PLAN: Continue IV fluid hydration, monitor for signs of fluid overload Monitor BMP Assessment & Plan (08/09/2019 10:12 AM EST): Assessment: Sodium upon admission: 1.25 Likely due to alcohol abuse and decreased oral intake PLAN: Continue IV fluid hydration, monitor for signs of fluid overload Monitor BMP Assessment & Plan (08/09/2019 7:29 AM EST): Start IV NS 100 cc/hr Related to alcohol abuse Recheck Na in am Pancreatic mass 08/08/2019 Assessment & Plan (08/11/2019 9:16 AM EST): CT abd: Slightly enlarging hypodense lesion in the head of the pancreas measuring 2.5 x 1.9 cm, previously 2.3 x 1.3 cm. Possible considerations include a pseudocyst or slowly enlarging cystic tumor. Worsening lymphadenopathy in the mesentery. Increase mesenteric stranding, which may represent a component of inflammation or edema. PLAN: GI referral as outpatient by PCP Recommend obtaining MRI pancrease as outpatient Assessment & Plan (08/10/2019 10:11 AM EST): CT abd: Slightly enlarging hypodense lesion in the head of the pancreas measuring 2.5 x 1.9 cm, previously 2.3 x 1.3 cm. Possible considerations include a pseudocyst or slowly enlarging cystic tumor. Worsening lymphadenopathy in the mesentery. Increase mesenteric stranding, which may represent a component of inflammation or edema. PLAN: GI referral as outpatient Recommend obtaining MRI pancrease as outpatient Assessment & Plan (08/09/2019 10:13 AM EST): CT abd: Slightly enlarging hypodense lesion in the head of the pancreas measuring 2.5 x 1.9 cm, previously 2.3 x 1.3 cm. Possible considerations include a pseudocyst or slowly enlarging cystic tumor. Worsening lymphadenopathy in the mesentery. Increase mesenteric stranding, which may represent a component of inflammation or edema. PLAN: GI referral as outpatient Recommend obtaining MRI pancrease as outpatient Assessment & Plan (08/09/2019 7:28 AM EST): CT abd: No evidence of bowel obstruction. Thickening of the distal stomach which may be related to gastritis or nondistention. Slightly enlarging hypodense lesion in the head of the pancreas measuring 2.5 x 1.9 cm, previously 2.3 x 1.3 cm. Possible considerations include a pseudocyst or slowly enlarging cystic tumor. Worsening lymphadenopathy in the mesentery. Increase mesenteric stranding, which may represent a component of inflammation or edema. Findings suggestive of postsurgical changes. Atrophic right kidney. Diverticulosis. Fatty infiltration of liver. Consider MRI and oncology consult Testis pain 02/25/2015 Hypertrophy of prostate with urinary obstruction and other lower urinary tract symptoms (LUTS) 02/25/2015 Slowing of urinary stream 02/25/2015 Chest tightness 02/23/2014 Lightheaded 02/23/2014 Hydronephrosis of right kidney 07/08/2013 Overview (07/08/2013): S/p R double J stent Gastroparesis 06/03/2013 Retroperitoneal abscess 03/04/2013 SUMMARY 02/07/2013 Overview (02/16/2013): George Zuniga is a 48 year old year old male, with a PMH significant for Acute Pancreatitis 12/27/12 requiring intubation secondary to respiratory failure and subsequently complicated by VAP / pancreatic insufficiency / new onset DM2; as well as HLD (Hyper-TG) and alcoholism who was recently admitted to [facility] 02/07/13 - 02/14/13 with CC of fevers, chills, low back pain an difficulty with urination. CT performed at admission revealed extensive retroperitoneal fluid collections concerning of necrotizing pancreatitis, and subsequently underwent IR CT Guided drainage on 02/14/13 with drainage of two fluid collections of 3 cc and 5 cc. Patient discharged home 02/14/13 with CORPAK placed for continued enteral nutrition x 2 weeks. Upon initiation of home TF on 02/15/13 developed severe lower abdominal and left flank pain, and re admitted for further evaluation. Hydronephrosis, bilateral 02/07/2013 Overview (02/16/2013): Rt moderate and Lt mild hydronephrosis noted on Renal sonogram. Pt did have hx of dysuria at OSH and possible stricture but currently nml urine flow with tamsulosin. Likely ureteral compression due to given RP fluid collection. UA in ED WNL Plan: - Monitor SCr and UOP. - Will Restart Tamsulosin for now. - Bladder Scan: 169 mL DM (diabetes mellitus) 02/07/2013 Assessment & Plan (08/11/2019 9:14 AM EST): Assessment: A1C (09/2017): 9% Currently glucose is controlled PLAN: Continue Lantus ISS with meals as patient on CLD Assessment & Plan (08/10/2019 10:10 AM EST): Assessment: A1C (09/2017): 9% Currently glucose is controlled PLAN: Will give 50 % of home dose, 20 units lantus as patient on CLD for now ISS with meals as patient on CLD Assessment & Plan (08/09/2019 10:06 AM EST): A1C (09/2017): 9% PLAN: Patient is NPO Will give 50 % of home dose, 20 units lantus Hold lispro with meals and start SSI -2 q 6 hrs Assessment & Plan (08/09/2019 7:30 AM EST): Patient is NPO Will give 50 % of home dose, 20 units lantus Hold lispro with meals and start SSI -2 q 6 hrs BGM Alcoholism Pancreatic insufficiency Overview (04/17/2013): s/p pancreatitis December 2012 Mood disorder Overview (04/17/2013): anxiety, anger Assessment & Plan (08/11/2019 9:14 AM EST): Assessment: Chronic, stable PLAN: Continue home meds Assessment & Plan (08/10/2019 10:10 AM EST): Assessment: Chronic, stable PLAN: Continue home meds Assessment & Plan (08/09/2019 10:07 AM EST): Assessment: Chronic, stable PLAN: Continue home meds Assessment & Plan (08/09/2019 7:33 AM EST): C/w same home meds Hypertriglyceridemia Assessment & Plan (08/11/2019 9:16 AM EST): Assessment Upon admission, triglyceride level 4k Glucose currently well controlled with Lantus and ISS Likely etiology for acute pancreatitis PLAN: C/w statin Recommend repeat Triglycerides level within 1 week of discharge Follow up results with PCP Recommend initiate fenofibrate once triglycerides <500 Assessment & Plan (08/10/2019 10:12 AM EST): Assessment Upon admission, triglyceride level 4k Glucose currently well controlled with Lantus and ISS Likely etiology for acute pancreatitis PLAN: C/w statin Will initiate fenofibrate once triglycerides <500 Monitor triglycerides Monitor glucose levels Assessment & Plan (08/09/2019 10:13 AM EST): C/w statin Send for FLP Assessment & Plan (08/09/2019 7:26 AM EST): C/w statin Send for FLP Resolved Problems Problem Noted Date Diagnosed Date Resolved Date GI bleed 01/07/2021 01/08/2021 Hip arthritis 12/01/2020 12/02/2020 Anemia 03/04/2013 06/03/2013 Hypokalemia 03/04/2013 06/03/2013 Hypomagnesemia 03/04/2013 06/03/2013 Retroperitoneal fluid collection 02/07/2013 07/23/2013 Overview (02/17/2013): Extensive fluid collection in RP and peripancreatic area. Currently afebrile and hemodynamically stable. Plan: - s/p IR Drainage of 2 fluid collections - Follow up with fluid stain, culture, and sensitivities. Growing GNB so far - discussed with ID --> to restart Zocyn DVT prophylaxis 02/07/2013 07/23/2013 Overview (02/16/2013): Initial concern for potential hematoma formation s/p IR Drainage of Abscess Held Pharmacologic VTE Prophylaxis Plan - Started on B/L LE IPC Diabetes 06/03/2013 Pancreatitis, acute 07/23/19 14 Overview (04/17/2013): Secondary to alcohol, hypertriglyceridemia Dyslipidemia 07/23/2013 Overview (04/17/2013): hypertriglyceridemia, hyperlipidemia Encounters Date Type Department Care Team Description 01/20/2025 8:39 AM EDT - 01/20/2025 10:12 AM EDT Emergency [facility] Emergency Dept [address] [place] [address] Foreign body Discharge Disposition: AMA/Discontinuation of Care-Use additional discharge code 01/20/2025 Travel from Last 3 Months Immunizations Immunization Administration Dates Next Due influenza (IIV4) vaccine, ag e 6 mo - 64 yr, quadrivalent, PF (AFLURIA, FLUARIX, FLULAVAL, FLUZONE) 08/09/2019 tetanus diphtheria pertussis (Tdap) vaccine, age 7+ yr (ADACEL, BOOSTRIX) 03/29/2020 Family History Medical History Relation Comments Hyperlipidemia Father Ischemic Heart Disease Father s/p CABG Diabetes Mother Type II DM Hyperlipidemia Mother Relation Status Comments Father Ischemic heart d isease, CABG Mother DM II Social History Tobacco Use Types Packs/Day Years Used Date Smoking Tobacco: Former Cigarettes 1 35 0 06/18/1977 - 06/18/2012 Smokeless Tobacco: Never Tobacco Cessation:Counseling Given: Not Answered Alcohol Use Standard Drinks/Week Comments Yes 0 [...] often do you attend chur ch or hindu services? More than 4 times per year [...] Answer Date Recorded PHQ-2 score 0 01/10/2021 [facility] [employer] [facility] Occupat ional Health - Occupational Stress [...] is lower risk 4 07/13/2024 Data from: https://www.neighborhoodatlas.medicine.[facility].edu/ . Last address used for calculation [address] [...] Start Date Job End Date Work at [employer] Not on file Not on file Not on starr e Last Filed Vital Signs Vital Sign Reading Time Taken Comments Blood Pressure 161/67 01/20/2025 8:27 AM EDT Pulse 71 01/20/2025 8:27 AM EDT Temperature 36.8 C (98.3 F) 05/06/2021 9:17 AM EST Respiratory Rate 17 01/20/2025 8:27 AM EDT Oxygen Saturation 98% 01/20/2025 8:27 AM EDT Inhaled Oxygen Concentration - - Weight 78.5 kg (173 lb) 01/20/2025 8:00 AM EDT Height 165.1 cm (5' 5 ) 01/20/2025 8:00 AM EDT Body Mass Index 28.79 01/20/2025 8:00 AM EDT Plan of Treatment Upcoming Encounters Date Type Department Care Team (Late st Contact Info) Description 07/13/2025 10:45 AM EST Office Visit Research [address] [place] [address] [phone], [id number] [phone] 07/13/2025 11:45 AM EST Office Visit Research [address] [place] [address] [address], [id number] [phone] Health Maintenance Due Date Last Done Comments Dilated Retinal Exam 1973 Anxiety Screening 1981 Depression Screening 1981 HIV Screening 1981 Hepatitis C Screening 1981 Pneumococcal Vaccine: 50+ (1 of 2 - PCV) 1982 CT Colonography 02/12/2008 Cologuard (FIT-DNA) 02/12/2008 Fecal Occult Blood 02/12/2008 Sigmoidoscopy 02/12/2008 Shingrix Vaccine (1 of 2) 2013 Diabetic Foot Exam 04/22/2014 04/22/2013 Prostate Cancer Screening Discussion 03/04/2020 03/04/2015, 03/04/2015 LDL Cholesterol 08/09/2020 08/09/2019, 07/20, 02/07/2013 Annual PCP Team Chronic Dise ase Visit 01/17/2022 01/17/2021 Colonoscopy 03/17/2022 03/17/2021, 08/27/2019 Colorectal Cancer Screening 03/17/2022 HbA1C 05/05/2022 02/02/2022, 04/18, 11/26/2020, Additional history exists Urine Albumin:Creatinine Ratio 02/02/2023 02/02/2022 RSV Vaccine (1 - Risk 60-74 years 1-dose series) 2023 Influenza Vaccine (#1) 2025 05/24/2022, 2019 DTaP,Tdap,Td Vaccine (3 - Td or Tdap) 03/29/2030 03/29/2020, 11/12/2018 Medical Devices Implanted Type Area Flight Attendant/Inflight Supervisor Device Identifier Shelf Expiration Date Model / Serial / Lot Biolox Delta Modular Ceramic Head 36mm W/3mm Neck Type 1 Taper Implanted:Qty : 1 on 12/01/2020 at [facility] Joint - Hip Left: Bone - Hip [employer] 04/14/2030 [id number] / / [id number] Shell G7 F Offset Hemisphere Osseoti Acetabular 4 Hole Limit 54mm Hip - [id number] Implanted:Qty : 1 on 12/01/2020 at [facility] Joint - Hip Left: Bone - Hip [employer] 01/23/2030 [id number] / / [id number] Vivacit-E Ncpa Liner Std 36mm Size F Implanted:Qty : 1 on 12/01/2020 at [facility] Joint - Hip Left: Bone - Hip [employer] 05/10/2025 [id number] / / [id number] Stem Taperloc 133d 12 Standard Offset Taper Pps 144mm Femoral Type 1 Full - [id number] Implanted:Qty : 1 on 12/01/2020 at [facility] Joint Left: Bone - Hip [employer] 09/12/2028 [id number] / / [id number] Screw G7 6.5mm Dome 25mm Acetabular Low Profile - [id number] Implanted:Qty : 1 on 12/01/2020 at [facility] Screw Left: Bone - Hip [employer] 08/12/2030 [id number] / / [id number] Stent Uret 7fr 22cm W/O Gw Inl - [id number] Implanted:Qty : 1 on 04/18/2013 at [facility] Urologic Stents Right: Ureter [employer] 10/17/2015 [id number] / / [id number] Procedures Procedure Name Priority Date/Time Associated Diagnosis Comments XR FOOT GENERAL 3V AP/LAT/OBL LEFT STAT 01/20/2025 9:01 AM EDT ALBUMIN/CREATININE RATIO, URINE Routine 02/02/2022 11:47 AM EDT Uncontrolled type 2 diabetes mellitus with hyperglycemia (HCC) HEMOGLOBIN A1C (POC) Routine 02/02/2022 11:29 AM EDT Uncontrolled type 2 diabetes mellitus with hyperglycemia (HCC) COLONOSCOPY GEN ANES Routine 03/17/2021 10:18 AM EDT Gastrointestinal hemorrhage, unspecified gastrointestinal hemorrhage type LIPID-LIPO PANEL 1 JAMES 08/09/2019 5: 10 AM EST PSA/PROSTSPECAG DIAG Routine 03/04/2015 3:40 PM EDT Hydronephrosis of right kidney Hx of acute pancreatitis Retroperitoneal abscess Hypertrophy of prostate with urinary obstruction and other lower urinary tract symptoms (LUTS) Testis pain Slowing of urinary stream from Last 3 Months or Most Recently Relevant to Health Maintenance Results * XR FOOT GENERAL 3V AP/LAT/OBL LEFT (01/20/2025 9:01 AM EDT) Anatomical Region Laterality Modality Foot Radiographic Ivette ging 01/20/2025 9:01 AM EDT Impressions 01/20/2025 9:48 AM EDT IMPRESSION: No acute osseous abnormality. No radiodense foreign body. Artist Representative: [email or web address] Transcribe Date/Time: Jan 20 2025 9:40A Dictated [...] No radiodense foreign body. Procedure Note Provider, [facility] - 01/20/2025 * * *Final Report* * [...] acute osseous abnormality. No radiodense foreign body. Artist Representative: [email or web address] Transcribe Date/Time: Jan 20 2025 9:40A Dictated by : MARAI E GRANDE MD This examination was interpreted and the report reviewed and electronically signed by: MARIA E GRANDE MD on Jan 20 2025 9:46AM EST us Kong Napoles MD RAD-PAMA Final Result * ALBUMIN/CREAT RATIO RND UR (02/02/2022 11:47 AM EDT) Creatinine, Ur Random (UCRR) 56.1 20.0 - 300.0 mg/dL 02/02/2022 10:35 PM EDT [facility] Albumin, Urine Random 13.5 mg/L 02/02/2022 10:35 PM EDT [facility] Albumin/Creat Ratio 24 <30 mg/g 02/02/2022 10:35 PM EDT [facility] Comment: Adult Male and Female Nephrotic Criteria: <30 mg/g is considered normal to mildly increased 30-300 mg/g is considered moderately increased >300 mg/g is considered severely increased KDIGO. (2013). KDIGO 2012 Clinical Practice Guideline for the Evaluation and Management of Chronic Kidney Disease. Official Journal of the International Society of Nephrology, 3(1), 1-150. Urine Random URINE SPECIMEN / Unknown Non Blood / Unknown 02/02/2022 11:47 AM EDT 02/02/2022 11:47 AM EDT us Zoila Sylvester IRON PELLET TESTER.[facility] Final Result [facility] [address] [place] [address], * (ABNORMAL) HEMOGLOBIN A1C (POC) (02/02/2022 11:29 AM EDT) Hemoglobin A1C (POCT) 8.4(A) 4.2 - 5.6 % [facility] Comment: Location:[facility], [address] [place] [address], [address] Point of care (POC) Hemoglobin A1c (HGBA1C) testing is intended to assess glucose control and provide a management tool for patients known to have diabetes and their healthcare providers. Target HGBA1C levels may depend on specific clinical circumstances. POC HGBA1C is not intended for use as a diagnostic or screening test; laboratory-based testing should be used for diagnostic purposes. The following information is supplemental and may not be applicable to specific diabetes management situations: The POC device transliterator provides a normal range of 4.2% to 6.5% for the HGBA1C POC test. However, the [place] Diabetes Association guidelines indicate that patients with HGBA1C in the range of 5.7% to 6.4% are at increased risk for development of diabetes and that intervention by lifestyle modification may be beneficial. A HGBA1C level greater than or equal to 6.5% is considered diagnostic of diabetes, pending confirmatory testing. Use of HGBA1C testing to evaluate glucose control may not be appropriate for patients with hemoglobin variants or other conditions (e.g. anemia) that alter red blood cell lifespan. BLOOD SPECIMEN / Unknown 02/02/2022 11:29 AM EDT us Zoila Sylvester APRN.[facility] P[facility] Final Result [facility] POINT OF CARE [address] * COLONOSCOPY GEN ANES (03/17/2021 10:18 AM EDT) Plant Safety Engineer [facility] Gastroenterology Gastrointestinal Endoscopy Patient Name: George Zuniga Procedure Date: 03/17/2021 10:18 AM Date of : 1965 Admit Type: Ambulatory Age: 56 [place] [facility] [place] 2 Gender: Male Note Status: Finalized Attending MD: Harvey Wilcox MD Procedure: Colonoscopy Indications: Gastrointestinal bleeding Providers: Harvey Wilcox MD Patient Profile: This is a 56 year old male. Refer to note in patient chart for documentation of history and physical. Last Colonoscopy: August 2019. Referring Physician: Dain Marion (Referring MD) Medicines: Monitored Anesthesia Care Complications: No immediate complications. Requesting Provider: Procedure: Pre-Anesthesia Assessment: - Prior to the procedure, a History and Physical was performed, and patient medications and allergies were reviewed. The patient is competent. The risks and benefits of the procedure and the sedation options and risks were discussed with the patient. All questions were answered and informed consent was obtained. Patient identification and proposed procedure were verified by the physician and the nurse in the pre-procedure area in the procedure room. Mental Status Examination: alert and oriented. Airway Examination: normal oropharyngeal airway and neck mobility. Respiratory Examination: clear to auscultation. CV Examination: normal. Prophylactic Antibiotics: The patient does not require prophylactic antibiotics. Prior Anticoagulants: The patient has taken no previous anticoagulant or antiplatelet agents. ASA Grade Assessment: III - A patient with severe systemic disease. After reviewing the risks and benefits, the patient was deemed in satisfactory condition to undergo the procedure. The anesthesia plan was to use monitored anesthesia care (MAC). Immediately prior to administration of medications, the patient was re-assessed for adequacy to receive sedatives. The heart rate, respiratory rate, oxygen saturations, blood pressure, adequacy of pulmonary ventilation, and response to care were monitored throughout the procedure. The physical status of the patient was re-assessed after the procedure. After I obtained informed consent, the scope was passed under direct vision. Throughout the procedure, the patient's blood pressure, pulse, and oxygen saturations were monitored continuously. The Colonoscope was introduced through the anus and advanced to the terminal ileum, with identification of the appendiceal orifice and IC valve. I was present and participated during the entire procedure, including non-andrade portions, and during the administration and monitoring of Moderate Sedation. The colonoscopy was performed without difficulty. The patient tolerated the procedure well. The quality of the bowel preparation was adequate. The terminal ileum, ileocecal valve, appendiceal orifice, and rectum were photographed. Scope Withdrawal Time: 0 hours 10 minutes 59 seconds Moderate Sedation: MAC anesthesia was administered by the anesthesia team. Findings: The perianal and digital rectal examinations were normal. The terminal ileum appeared normal. Multiple small and large-mouthed diverticula were found in the sigmoid colon. A 3 mm polyp was found in the sigmoid colon. The polyp was sessile. The polyp was removed with a cold snare. Resection and retrieval were complete. Verification of patient identification for the specimen was done by the nurse and medical records field technician using the patient's name, date and medical record number. The pathology specimen was placed into Bottle Number 1. Estimated blood loss was minimal. Non-bleeding external hemorrhoids were found during retroflexion. The hemorrhoids were small. The exam was otherwise without abnormality on direct and retroflexion views. Impression: - The examined portion of the ileum was normal. - Diverticulosis in the sigmoid colon. - One 3 mm polyp in the sigmoid colon, removed with a cold snare. Resected and retrieved. - Non-bleeding external hemorrhoids. - The examination was otherwise normal on direct and retroflexion views. Recommendation: - Patient has a contact number available for emergencies. The signs and symptoms of potential delayed complications were discussed with the patient. Return to normal activities tomorrow. Written discharge instructions were provided to the patient. - High fiber diet. - Continue present medications. - Await pathology results. - Repeat colonoscopy in 5-10 years for surveillance based on pathology results. Procedure Code(s): --- Professional --- 36836, Colonoscopy, flexible; with removal of tumor(s), polyp(s), or other lesion(s) by snare technique Diagnosis Code(s): --- Professional --- K64.4, Residual hemorrhoidal skin tags K63.5, Polyp of colon K92.2, Gastrointestinal hemorrhage, unspecified K57.30, Diverticulosis of large intestine without perforation or abscess without bleeding CPT copyright 2019 [employer]. All rights reserved. The codes documented in this report are preliminary and upon tumbler operator review may be revised to meet current compliance requirements. Scope In: 10:29:53 AM Scope Out: 10:48:49 AM MD Harvey Meade MD 03/17/2021 10:53:06 AM This report has been signed electronically by Harvey Wilcox MD Number of Addenda: 0 Note Initiated On: 03/17/2021 10:18 AM Estimated Blood Loss: Estimated blood loss was minimal. [facility] Anatomical Region Laterality Modality Other 03/17/2021 10:1 8 AM EDT Allie Aguilar DO [facility] Final Result * (ABNORMAL) LIPID PANEL BASIC (AK,AV,EU,FV,HL,RAMIREZ,MM,SP) (08/09/2019 5:10 AM EST) Cholesterol, Total 1,043(H) <200 mg/dL 08/09/2019 8:23 AM EST [facility] Triglyceride 4,332(H) <150 mg/dL 08/09/2019 8:23 AM [facility] HDL Cholesterol 10(L) >39 mg/dL 08/09/2019 8:23 AM [facility] LDL Calculated Unable to calculate due to increased Triglyceride s. See LDL-Chol, Direct. <100 mg/dL 08/09/2019 8:23 AM [facility] Non HDL Cholesterol 1,033(H) <130 mg/dL 08/09/2019 8:23 AM [facility] Comment: <130 mg/dL, Optimal 130-159 mg/dL, Near optimal/above optimal 160-189 mg/dL, Borderline high 190-219 mg/dL, High >219 mg/dL, Very high Secondary prevention optimal non HDL Cholesterol levels are recommended to be < 100 mg/dL Fasting Time Blood hrs 08/09/2019 7:33 AM [facility] VLDL Cholesterol Unable to calculate due to increased Triglyceride s. See LDL-Chol, Direct. <30 mg/dL 08/09/2019 8:23 AM [facility] TC:HDL Ratio 104.30(H) <5.10 08/09/2019 8:23 AM [facility] LDL:HDL Ratio Unable to calculate due to elevated Triglyceride s. <2.54 08/09/2019 8:23 AM [facility] Comment: Reference: 1. National Cholesterol Education Program ATP III Guideline At-A-Glance Quick Desk Reference: National Heart, Lung, and [employer]. National Institutes of Health. 2001: NIH Publication No. 01-3305. 2. An International Atherosclerosis Society position paper: global recommendations for the management of dyslipidemia: executive summary, Atherosclerosis. 2014: 232(2):410-413. Blood specimen (specimen) BLOOD SPECIMEN / Unknown 08/09/2019 5:10 AM EST 08/09/2019 7:32 AM EST Peter Santamaria MD LABORATORY REGIONAL Final Result [facility] [address] [place] [address], [facility] * PSA/PROSTSPECAG DIAG (03/04/2015 3:40 PM EDT) PSA 0.22 0.00 - 2.59 ng/mL 03/04/2015 7:43 PM EDT [facility] Comment:Total PSA test metho dology used is the Electrochemiluminescence Immunoassay. Blood specimen (specimen) BLOOD SPECIMEN / Unknown 03/04/2015 3:40 PM EDT 03/04/2015 3:42 PM EDT Jonathan Booker MD LABORATORY Final Result [facility] [address] [place] [address] from Last 3 Months or Most Recently Relevant to Health Maintenance Insurance [facility] MEDICAID Care Teams Paper Carrier Relationship Specialty Start Date End Date Dain Marion DO [address] [place] [address] PCP - General 02/07/13
--- OUTSIDE RECORDS SUMMARY | 2025-01-23 07:48 | XMS_ITS | Encounter Summary ---
Author Organization [facility] Address [address] [place] [address] Care Team Providers Care Assistant Foreman Name Role Phone Dain Marion DO Primary Care Provider +1- [phone] Source Comments In the event this information is protected by the Federal Confidentiality of Alcohol and Drug AbusePatient Records regulations: The Federal rules restrict any use of the information to criminally investigate or prosecute any alcohol or drug abuse patient.[facility] Encounter Details Date Type Department Care Team (Late st Contact Info) Description 07/15/2015 Get Medical Advice Urology [address] [phone] Wily Morales PA-C [address] [place] [address] RE: Non-Urgent Medical Question Social History Tobacco Use Types Packs/Day [...] Start Date Job End Date Work at [employer] Not on file Not on file Not [...] 10:45 AM EST Office Visit Research [address] [place] [address] #10, Yr2 -[id number] 07/13/2025 11:45 AM EST Office Visit Research [address] [place] [address] #10, [phone] documented as of this encounter Visit Diagnoses Not on filedocumented in this encounter Additional Health Concerns Infection Onset Date Last Indicated Resolved Time COVID-19 Rule-Out 01/07/2021 01/07/202101/07/2021 6:51 PM EDT documented as of this encounter Care Teams Assistant Foreman Relationship Specialty Start Date End Date Dain Marion DO [address] [place] [address] PCP - General 02/07/13 documented as of this encounter
--- OUTSIDE RECORDS SUMMARY | 2025-01-23 07:48 | XMS_ITS | Encounter Summary ---
Author Organization [facility] Address [address] [place] [address] Care Team Providers Care Supervisor Dimension Warehouse Name Role Phone Dain Marion DO Primary Care Provider +1- [phone] Source Comments In the event this information is protected by the Federal Confidentiality of Alcohol and Drug AbusePatient Records regulations: The Federal rules restrict any use of the information to criminally investigate or prosecute any alcohol or drug abuse patient.[facility] Encounter Details Date Type Department Care Team (Late st Contact Info) Description 06/08/2015 Get Medical Advice Urology [address] [phone] Wily Morales PA-C [address] [place], [place] [phone] RE: Non-Urgent Medical Question Social History Tobacco [...] Start Date Job End Date Work at [employer] Not on file Not on file Not [...] AM EST Office Visit Research [address] [place] [address] [address]10, Yr2 -[phone] 07/13/2025 11:45 AM EST Office Visit Research [address] [place] [address] #10, -[phone] documented as of this encounter Visit Diagnoses Not on filedocumented in this encounter Additional Health Concerns Infection Onset Date Last Indicated Resolved Time COVID-19 Rule-Out 01/07/2021 01/07/202101/07/2021 6:51 PM EDT documented as of this encounter Care Teams Supervisor Dimension Warehouse Relationship Specialty Start Date End Date Dain Marion DO [address] [place] [address] PCP - General 02/07/13 documented as of this encounter
--- OUTSIDE RECORDS SUMMARY | 2025-01-23 07:48 | XMS_ITS | Encounter Summary ---
Author Organization [facility] Address [address] [place] [address] Care Team Providers Care Sizing Machine Operator Name Role Phone Dain Marion DO Primary Care Provider +1- [phone] Source Comments In the event this information is protected by the Federal Confidentiality of Alcohol and Drug AbusePatient Records regulations: The Federal rules restrict any use of the information to criminally investigate or prosecute any alcohol or drug abuse patient.[facility] Encounter Details Date Type Department Care Team (Late st Contact Info) Description 06/14/2015 Patient Msg Medical Records [address] [place] [address] Provider, Ccf UROLOGY PRE OP~SURGERY INSTRUCTIONS Social History Tobacco Use Types Packs/Day [...] Start Date Job End Date Work at [employer] Not on file Not on file [...] AM EST Office Visit Research [address] [place] [address] [address]10, Yr2 -[phone] 07/13/2025 11:45 AM EST Office Visit Research [address] [place] [address] [address]10, Yr2 -[phone] documented as of this encounter Visit Diagnoses Not on filedocumented in this encounter Additional Health Concerns Infection Onset Date Last Indicated Resolved Time COVID-19 Rule-Out 01/07/2021 01/07/2021 01/07/2021 6:51 PM EDT documented as of this encounter Care Teams Sizing Machine Operator Relationship Specialty Start Date End Date Dain Marion DO [address] [place] [address] PCP - General 02/07/13 documented as of this encounter
--- OUTSIDE RECORDS SUMMARY | 2025-01-23 07:48 | XMS_ITS | Encounter Summary ---
Author Organization [facility] Address [address] [place] [address] Care Team Providers Care Truck Body Builder Apprentice Name Role Phone Dain Marion DO Primary Care Provider +1- [phone] Source Comments In the event this information is protected by the Federal Confidentiality of Alcohol and Drug AbusePatient Records regulations: The Federal rules restrict any use of the information to criminally investigate or prosecute any alcohol or drug abuse patient.[facility] Encounter Details Date Type Department Care Team (Late st Contact Info) Description 05/03/2015 Get Medical Advice Urology [address] [phone] Ammon Vargas MD [address] [facility] [place] [address] RE: Test Result Question Social History Tobacco [...] Start Date Job End Date Work at [employer] Not on file Not on file Not [...] AM EST Office Visit Research [address] [place] [address] [address]10, Yr2 -[phone] 07/13/2025 11:45 AM EST Office Visit Research [address] [place] [address] #10, -[phone] documented as of this encounter Visit Diagnoses Not on filedocumented in this encounter Additional Health Concerns Infection Onset Date Last Indicated Resolved Time COVID-19 Rule-Out 01/07/2021 01/07/2021 01/07/2021 6:51 PM EDT documented as of this encounter Care Teams Truck Body Builder Apprentice Relationship Specialty Start Date End Date Dain Marion DO [address] [place] [address] PCP - General 02/07/13 documented as of this encounter
--- OUTSIDE RECORDS SUMMARY | 2025-01-23 07:48 | XMS_ITS | Encounter Summary ---
Author Organization [facility] Address [address] [place] [address] Care Team Providers Care Ship Painter Helper Name Role Phone Dain Marion DO Primary Care Provider +1- [phone] Source Comments In the event this information is protected by the Federal Confidentiality of Alcohol and Drug AbusePatient Records regulations: The Federal rules restrict any use of the information to criminally investigate or prosecute any alcohol or drug abuse patient.[facility] Encounter Details Date Type Department Care Team (Late st Contact Info) Description 06/15/2015 Patient Msg Medical Records [address] [place] [address] Provider, Ccf RE: Patient Registration Completed Social [...] AM EST Office Visit Research [address] [place] [address] [address]10, Yr2 -[phone] 07/13/2025 11:45 AM EST Office Visit Research [address] [facility] [place] [address] [address]10, Yr2 -[phone] documented as of this encounter Visit Diagnoses Not on filedocumented in this encounter Additional Health Concerns Infection Onset Date Last Indicated Resolved Time COVID-19 Rule-Out 01/07/2021 01/07/2021 01/07/2021 6:51 PM EDT documented as of this encounter Care Teams Ship Painter Helper Relationship Specialty Start Date End Date Dain Marion DO [address] [place] [address] PCP - General 02/07/13 documented as of this encounter
--- OUTSIDE RECORDS SUMMARY | 2025-01-23 07:48 | XMS_ITS | Encounter Summary ---
Author Organization [facility] Address [address] [place] [address] Care Team Providers Care Natural History Collections Curator Name Role Phone Dain Marion DO Primary Care Provider +1- [phone] Source Comments In the event this information is protected by the Federal Confidentiality of Alcohol and Drug AbusePatient Records regulations: The Federal rules restrict any use of the information to criminally investigate or prosecute any alcohol or drug abuse patient.[facility] Encounter Details Date Type Department Care Team (Late st Contact Info) Description 04/26/2021 Patient Msg Orthopaedics [address] [place], [place] [phone] Provider, Ccf Pre-surgery Covid and post op appointments scheduled Social History Tobacco Use Types Packs/Day Years [...] often do you attend chur ch or advent services? More than 4 times per year [...] Answer Date Recorded PHQ-2 score 0 01/10/2021 [facility] - Occupational Stress [...] place to sleep or slept in a mcc (including now)? No 01/10/2021 Area Deprivation Index Answer Date Ang rded National Score (1-100), lower number is lower ri sk Not on file 05/25/2020 State Score (1-10), lower number is lower risk N ot on file 05/25/2020 Data from: https://www.neighborhoodatlas.medicine.[facility].edu/. Last address used for calculation Not on [...] Start Date Job End Date Work at [employer] Not on file Not on file Not on starr e COVID-19 Exposure Response Date Recorded In the last month, have you been in contact with someone who was confirmed or suspected to have Coronavirus / COVID-19? Unable to assess 04/25/2021 9:19 AM EST documented as of this encounter Functional Status [...] 10:45 AM EST Office Visit Research [address] [place] [address] #10, Yr2 -[phone] 07/13/2025 11:45 AM EST Office Visit Research [address] [place] [address] #10, Yr2 -[phone] documented as of this encounter Visit Diagnoses Not on filedocumented in this encounter Care Teams Natural History Collections Curator Relationship Specialty Start Date End Date Dain Marion DO [address] [place] [address] PCP - General 02/07/13 documented as of this encounter
--- NOTE | 2025-01-23 07:52 | XR_ITS ---
The [address] [address] Patient Name: YOLANDA COREY MRN: [id number] date: 1965 Sex: M Assigned Patient Location: ED.MAIN Current Patient Location: ED.MAIN Accession/Order Number: [id number] Exam Date: 01/23/2025 08:08 Report Date: 01/23/2025 08:12 At the request of: AUGUST EM MD Procedure: XR foot BRIEN min 3V BILATERAL FEET - 3 views each CLINICAL DATA: Patient was walked leg 3 weeks ago without work loops. Bilateral foot pain near the first metatarsal phalangeal joint on the left and fifth on the right. COMPARISON: None AP, lateral and oblique views were obtained on both sides. Markers were placed at the sites of clinical concern. No acute fractures or dislocation are identified. Old fracture deformity is noted at the proximal shaft of the fifth metatarsal on the left. There are tiny calcaneal spurs. There is also minor degenerative change at the first tarsometatarsal and metatarsal phalangeal joints, greater on the right. No soft tissue swelling or foreign bodies are identified. XR/XR foot BRIEN min 3V IMPRESSION: NO ACUTE BONY FINDINGS OR RADIOPAQUE FOREIGN BODIES. Impression dictated by: Alicia Hernandez M.D. 01/23/2025 8:12 AM Dictation Location[facility] Electronically authenticated by: [id number] Y Date: 01/23/2025 08:12
--- NOTE | 2025-01-23 07:56 | ED.GENADUL1 ---
HPI HPI - General Adult General Chief complaint: Skin/Abscess/Foreign Body Stated complaint: FOREIGN BODY - STEEL SHAVINGS/FOOT Time Seen by Provider: 01/23/25 07:52 Source: patient Mode of arrival: walk-in Limitations: no limitations History of Present Illness HPI narrative: 59-year-old male presents to the emergency department because he is concerned he might have metal in his feet. 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 He states he was too lazy to put his work boots on and he had to stack shoes on and he thinks that he has metal in the plantar aspect of each foot. He states he was at the [facility] and he had an x-ray performed and he was told by the tech that they did not see anything in it. He did not stay to get the results. No drainage. Related Data Home Medications ?Medication ?Instructions ?Recorded ?Confirmed citalopram 20 mg tablet 20 mg PO DAILY 01/23/25 01/23/25 fenofibrate micronized 200 mg 200 mg PO DAILY 01/23/25 01/23/25 capsule insulin aspart U-100 100 unit/mL 50 unit subcut TID 01/23/25 01/23/25 (3 mL) subcutaneous pen losartan 50 mg tablet 50 mg PO DAILY 01/23/25 01/23/25 rosuvastatin 20 mg tablet 20 mg PO DAILY 01/23/25 01/23/25 Previous Rx's ?Medication ?Instructions ?Recorded cephalexin 500 mg capsule 500 mg PO TID 10 days #30 caps 01/23/25 Allergies Allergy/AdvReac Type Severity Reaction Status Date / Time No Known Drug Allergies Allergy Verified 01/23/25 07:44 Opioid HPI Opioid Management Most Recent Opioid Data: Last Pain Scale 3 Today, 07:45 Review of Systems ROS Narrative A ten point review of systems is negative except as noted above. PFSH PFSH Social History Little interest or pleasure in doing things: not at all Feeling down, depressed, or hopeless: not at all Exam Narrative Exam Narrative: Nurses note and vital signs reviewed and patient is not hypoxic. General: The patient appears well and in no apparent distress. Patient is resting comfortably on cart. Skin: Warm, dry, no pallor noted. There is no rash noted. Head: Normocephalic, atraumatic Eye: Normal conjunctiva, no drainage Ears, Nose, Mouth, and Throat: oral mucosa is moist. Nares patent. Cardiovascular: Regular Rate and Rhythm Respiratory: Patient is in no distress, no accessory muscle use GI: Soft and nontender Musculoskeletal: The plantar aspect of each foot is examined. There is no erythema or open area or drainage. On the plantar aspect of the left foot proximal to the base of the 1st and 2nd toes is a very minimally raised area which has a dark center. There is an abrasion at the right plantar aspect just proximal to the fifth toe. Neurological: A&O, normal speech Psychiatric: Cooperative Constitutional Vital Signs, click to edit/add: Last Vital Signs Temp 97.5 F L 01/23/25 07:45 Pulse 68 01/23/25 07:45 Resp 16 01/23/25 07:45 BP 154/82 H 01/23/25 07:45 Pulse Ox 98 01/23/25 07:45 O2 Del Method Room Air 01/23/25 07:45 Course Vital Signs Vital signs: Vital Signs Temperature 97.5 F L 01/23/25 07:45 Pulse Rate 68 01/23/25 07:45 Respiratory Rate 16 01/23/25 07:45 Blood Pressure 154/82 H 01/23/25 07:45 Pulse Oximetry 98 01/23/25 07:45 Oxygen Delivery Method Room Air 01/23/25 07:45 Temperature 97.5 F L 01/23/25 07:45 Pulse Rate 68 01/23/25 07:45 Respiratory Rate 16 01/23/25 07:45 Blood Pressure 154/82 H 01/23/25 07:45 Pulse Oximetry 98 01/23/25 07:45 Oxygen Delivery Method Room Air 01/23/25 07:45 Medical Decision Making MDM Narrative Medical decision making narrative: X-ray of the foot on my interpretation shows tiny linear foreign bodies, 1 in each foot. Findings are discussed with the patient and he was referred to podiatry. He is placed on Keflex. At this point exploration in the emergency department is not warranted for such small foreign bodies and the possibility that they will be left in place was discussed with the patient but he will follow-up with podiatry for consultation. Treatment diagnosis and follow-up were discussed with the patient. Differential Diagnosis Differential Diagnosis: Foreign body, puncture wound Imaging Data Foot x-rays bilateral: My impression: There is a foreign body on the right foot medial to the marker on the AP view. On the lateral view of the left foot there is a tiny foreign body just deep to the marker. This was discussed with the reading radiologist and addendum is to follow-up. Radiologist's impression: ITS Impressions Foot X-Ray 01/23/25 07:52 IMPRESSION: NO ACUTE BONY FINDINGS OR RADIOPAQUE FOREIGN BODIES. Impression dictated by: Alicia Hernandez M.D. 01/23/2025 8:12 AM Dictation Location: [employer] Electronically authenticated by: [id number] Y Date: 01/23/2025 08:12 Discharge Plan Discharge Chief Complaint: Skin/Abscess/Foreign Body Clinical Impression: Foreign body (FB) in soft tissue Patient Disposition: Home, Self-Care Time of Disposition Decision: 08:28 Condition: Good Mode of Transportation: Private Vehicle Prescriptions / Home Meds: New cephalexin 500 mg capsule 500 mg PO TID 10 Days Qty: 30 0RF No Action insulin aspart U-100 100 unit/mL (3 mL) insulin pen 50 unit SUBCUT TID losartan 50 mg tablet 50 mg PO DAILY rosuvastatin 20 mg tablet 20 mg PO DAILY fenofibrate micronized 200 mg capsule 200 mg PO DAILY citalopram 20 mg tablet 20 mg PO DAILY Print Language: Faroese Instructions: Soft Tissue Foreign Body (ED) Referrals: MIRIAN WILL [Primary Care Provider, Family Practice] - 1 week Tam Paige DPM [Physician, Podiatry]
[2025-01-23] MEDS: DIPHTH,PERTUSS(ACELL),TET VAC 0.5 ML SYRINGE IM (08:37)
== END 2025-01-23 08:44 | disposition home or self-care (01) ==
PROVIDERS: Emergency Provider Emergency Medicine; Family Provider Family Medicine; PCP Family Medicine
DX: M79.5 Residual foreign body in soft tissue (principal); S91.342A Puncture wound with foreign body, left foot, initial encounter; S91.341A Puncture wound with foreign body, right foot, initial encounter; Z23 Encounter for immunization
CPT/HCPCS: 73630; 90471; 99284